=== PATIENT | female | born 1950 | race Caucasian/White ===

== ENCOUNTER 2020-07-15 18:39 | Emergency (ER) | payer MEDICARE, OTHER ==
[2020-07-15 19:00] LABS: BILIRUBIN,URINE NEGATIVE (NEGATIVE); GLUCOSE, URINE (UA) NEGATIVE (NEGATIVE); KETONES,URINE (UA) NEGATIVE (NEGATIVE); LEUKOCYTE ESTERASE, URINE NEGATIVE (NEGATIVE); NITRITE,URINE POSITIVE (NEGATIVE); OCCULT BLOOD,URINE NEGATIVE (NEGATIVE); PH,URINE 7.5 PH (5.0-7.5); PROTEIN,URINE NEGATIVE (NEGATIVE); UROBILINOGEN,URINE 0.2 (NORMAL) E.U./dL (NORMAL)
[2020-07-15 19:03] LABS: CLARITY,URINE CLEAR (CLEAR)
[2020-07-15 19:10] LABS: BACTERIA,URINE Rare /HPF (None Seen); RBC,URINE None Seen /HPF (0-5); SQUAMOUS EPITHELIAL CELL,UR FEW Squamous (<= Few)
[2020-07-15] MEDS ORDERED: CIPROFLOXACIN 250 MG TABLET PO STA (19:46)
--- NOTE | 2020-07-15 19:52 | ED Physician Documentation ---
History of Present Illness - Stated complaint Stated Complaint: FEMALE - Chief complaint Chief Complaint: UTI - History obtained from History obtained from: Patient - Additonal information Additional information: 69-year-old woman with past medical history of diabetes not on medications currently, hyperlipidemia presents with dysuria and increased frequency gradual in onset today without hematuria. She also endorses some groin discomfort. Took Azo pill with improvement in symptoms. Denies abdominal pain, back pain, fever, nausea or other symptoms. She does have a history of UTI but has not had one in 3 years. She has had cystoscopy in the past that showed urethral narrowing. Review of Systems Ten Systems: 10 systems reviewed and negative Constitutional: denies: Fever, Chills GI: denies: Abdominal Pain, Nausea : reports: Dysuria, Frequency PD PAST MEDICAL HISTORY - Past Medical History Past Medical History: Yes Cardiovascular: Hypertension Endocrine/Autoimmune: Type 2 diabetes - Past Surgical History Ortho: Knee replacement, Spine surgery, Other HEENT: Tonsil/Adenoidectomy - Present Medications Home Medications: Ambulatory Orders Medication Instructions Recorded Confirmed Ascorbic Acid [Vitamin C] 1,000 mg PO DAILY 07/15/20 07/15/20 Aspirin [Aspirin EC] 81 mg PO DAILY 07/15/20 07/15/20 Cholecalciferol [Vitamin D3] 10,000 unit PO DAILY 07/15/20 07/15/20 Ciprofloxacin [Cipro] 250 mg PO Q12H 5 Days #10 tablet 07/15/20 Multivitamin 1 tab ORAL DAILY 07/15/20 07/15/20 Pravastatin Sodium [Pravachol] 20 mg PO DAILY 07/15/20 07/15/20 Ubidecarenone [Co Q-10] 200 mg PO DAILY 07/15/20 07/15/20 - Allergies Allergies/Adverse Reactions: Allergies Allergy/AdvReac Type Severity Reaction Status Date / Time cefazolin [From Anc] Allergy Hives Verified 07/15/20 18:43 - Social History Does the pt smoke?: No Smoking Status: Never smoker Does the pt drink ETOH?: Yes Does the pt have substance abuse?: No Substance Use and Type: CBD oil / Products - Immunizations Immunizations are current?: Yes - POLST Patient has POLST: No PD ED PE NORMAL - Vitals Vital signs reviewed: Yes - General General: Alert and oriented X 3, No acute distress, Well developed/nourished - HEENT HEENT: Atraumatic, PERRL, EOMI, Moist mucous membranes - Neck Neck: Supple, no meningeal sign - Abdomen Abdomen: Non tender, Non distended - Female Female : Deferred - Rectal Rectal: Deferred - Back Back: No CVA TTP - Derm Derm: Normal color - Extremities Extremities: No deformity - Neuro Neuro: Alert and oriented X 3 - Psych Psych: Normal mood, Normal affect Results - Vitals Vitals: Vital Signs - 24 hr 07/15/20 18:43 Temperature 37.1 C Heart Rate 106 H Respiratory 18 Rate Blood Pressure 200/91 H O2 Saturation 98 Oxygen O2 Source Room air - Labs Labs: Laboratory Tests 07/15/20 18:25 Urine Color YELLOW Urine Clarity CLEAR Urine pH 7.5 Ur Specific [place] 1.010 Urine Protein NEGATIVE Urine Glucose (UA) NEGATIVE Urine Ketones NEGATIVE Urine Occult Blood NEGATIVE Urine Nitrite POSITIVE H Urine Bilirubin NEGATIVE Urine Urobilinogen 0.2 (NORMAL) Ur Leukocyte Esterase NEGATIVE Urine RBC None Seen Urine WBC 0-3 Ur Squamous Epith Cells FEW Squamous Urine Bacteria Rare Ur Microscopic Review INDICATED Urine Culture Comments INDICATED PD MEDICAL DECISION MAKING - ED course ED course: 69-year-old woman with history of diabetes not currently on medications, hyperlipidemia presents with urinary symptoms x1 day without abdominal pain, nausea, back pain or fever. She took an Azo pill prior to arrival and her urinalysis shows nitrites, possibly a contaminant secondary to Azo with few bacteria. 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 she is requesting antibiotics and states she will follow up with a primary doctor this week in regards to her elevated blood pressure. She states that she is anxious and thinks that this is the cause. Strict return precautions given. Departure - Departure Disposition: Home, Self Care Clinical Impression: UTI (urinary tract infection) Condition: Good Instructions: Urinary Tract Infecs Women Follow-Up: aJsmyn Perdue MD [Physician No Access] - Tess Ball DO [Provider Admit Priv/Credential] - Prescriptions: Ciprofloxacin [Cipro] 250 mg PO Q12H 5 Days #10 tablet Comments: You were seen in the emergency department for UTI. Return to the emergency department if you have fevers, back pain abdominal pain or worsening of symptoms. Follow-up this week to arrange an appointment with your primary doctor and exam have your blood pressure retaken. Take antibiotics as prescribed and take a probiotic daily.
[2020-07-15 19:59] VITALS: BP 149/88
== END 2020-07-15 20:05 | disposition home or self-care (01) ==
LOC: ED 18:39
DX: N39.0 Urinary tract infection, site not specified (principal); I10 Essential (primary) hypertension; E11.9 Type 2 diabetes mellitus without complications; E78.5 Hyperlipidemia, unspecified; Z79.82 Long term (current) use of aspirin
CPT/HCPCS: 81001; 87086; 99283; 99284; A9270; 81003

== ENCOUNTER 2020-10-15 10:43 | Outpatient (CLI) | payer MEDICARE, OTHER ==
--- NOTE | 2020-10-16 13:16 | Mammography Report ---
BILATERAL DIGITAL SCREENING MAMMOGRAM 3D/2D: 10/15/2020 CLINICAL: Routine screening. Comparison is made to exams dated: 07/06/2019 mammogram, 06/04/2018 mammogram, 06/04/2018 mammogram, 06/02/2017 mammogram, 05/02/2016 mammogram, and 07/04/2014 mammogram - [facility]. The tissue of both breasts is predominantly fatty. No significant masses, calcifications, or other findings are seen in either breast. There has been no significant interval change. IMPRESSION: NEGATIVE There is no mammographic evidence of malignancy. A 1 year screening mammogram is recommended. This exam was interpreted at Station ID: [id number]. NOTE: For mammograms, a report in lay terms will be sent to the patient. Approximately 15% of breast malignancies will not be visualized mammographically. In the management of a palpable breast mass, a negative mammogram must not discourage biopsy of a clinically suspicious lesion. Electronically Signed By: Abdoul Caballero M.D., jr/penrad:10/15/2020 12:01:14 ACR BI-RADS Category 1: Negative 3341F PARENCHYMAL PATTERN: (F) - The breast(s) demonstrate(s) diffuse fatty replacement. BI-RADS CATEGORY: (1) - 1 RECOMMENDATION: (ANNUAL) - Recommend routine annual screening mammography. [id number] 1 year screening LATERALITY: (B)
== END 2020-10-15 10:44 | disposition home or self-care (01) ==
LOC: DI.N 10:43
PROVIDERS: ATTEND Internal Medicine
DX: Z12.31 Encounter for screening mammogram for malignant neoplasm of breast (principal)

== ENCOUNTER 2020-10-18 14:36 | Outpatient (CLI) | payer MEDICARE, OTHER | END 2020-10-18 14:37 | disposition home or self-care (01) | LOC: RT 14:36 | PROVIDERS: ATTEND Internal Medicine Cardiovascular Disease | DX: I10 Essential (primary) hypertension (principal) | CPT/HCPCS: 93005 ==

== ENCOUNTER 2020-12-12 10:07 | Outpatient (CLI) | payer MEDICARE, OTHER | END 2020-12-12 10:08 | disposition home or self-care (01) | LOC: DI 10:07 | PROVIDERS: ATTEND Internal Medicine Cardiovascular Disease | DX: R01.1 Cardiac murmur, unspecified (principal); I07.1 Rheumatic tricuspid insufficiency | CPT/HCPCS: 93306 ==

== ENCOUNTER 2021-01-28 12:55 | Outpatient (CLI) | payer MEDICARE, OTHER ==
--- NOTE | 2021-01-28 16:38 | XRAY Report ---
PROCEDURE: SI Joints INDICATIONS: SI JOINT PAIN TECHNIQUE: 3 views of the sacroiliac joints were acquired. COMPARISON: None FINDINGS: Bones: No bony erosions or ankylosis. No suspicious bony lesions. No fractures. Mild bilateral sac roiliac joint osteoarthritis. Lumbosacral spine fixation hardware is partially visualized. The visual ized orthopedic hardware is intact. Soft tissues: Overlying bowel gas pattern is normal. No suspicious soft tissue densities. IMPRESSION: Mild bilateral sacroiliac joint osteoarthritis. No osseous erosive changes or ankylosis. Reviewed by: Nataliia Reagan MD, PhD on 01/28/2021 4:37 PM PDT Approved by: Nataliia Reagan MD, PhD on 01/28/2021 4:37 PM PDT Station ID: [id number]
--- NOTE | 2021-01-29 08:21 | XRAY Report ---
PROCEDURE: Lumbar Spine 2 View INDICATIONS: BACK PAIN TECHNIQUE: 2 views of the lumbar spine were acquired. COMPARISON: None FINDINGS: Bones: 5 [id number] vertebrae are present. There is normal bony alignment. Moderate T12 compre ssion fractures present which is not well visualized. No suspicious bony lesions. Posterior/interbo dy fusion from the L1 through the S1 level. Surgical hardware appears intact and in expected position s. Grade 1 spinal listhesis L4-L5. Multilevel disc degeneration. Bones are osteopenic. Soft tissues: Overlying bowel gas pattern is normal. No suspicious soft tissue calcifications. Vas cular calcifications indicating atherosclerosis. IMPRESSION: 1. Moderate T12 compression of indeterminate age 2. Multilevel posterior/interbody fusion from the L1 through the S1 level with hardware in expected p osition. 3. Multilevel spondylosis. 4. Diffuse osteopenia. Reviewed by: BLAIR Moralez on 01/29/2021 8:19 AM PDT Approved by: Nicolás Cameron MD on 01/29/2021 8:19 AM PDT Station ID: [id number]
--- NOTE | 2021-01-29 08:21 | XRAY Report ---
PROCEDURE: Thoracic Spine 2 View INDICATIONS: BACK PAIN TECHNIQUE: 3 views of the thoracic spine were acquired. COMPARISON: Prior lumbar spine series dated 01/28/2021.. FINDINGS: Bones: Mild compression fracture at the T12 level of indeterminate acuity. Surgical hardware again se en within the upper lumbar spine incompletely visualized. Moderate multilevel disc degeneration.. No suspicious bony lesions. 12 pairs of ribs are noted, and appear intact where visualized. Soft tissues: No paravertebral stripe thickening. IMPRESSION: Mild T12 compression fracture of indeterminate age. If indicated, MRI could be performed for further characterization. Multilevel spondylosis throughout the thoracic spine. Reviewed by: BLAIR Moralez on 01/29/2021 8:20 AM PDT Approved by: Nicoáls Cameron MD on 01/29/2021 8:20 AM PDT Station ID: [id number]
--- NOTE | 2021-01-29 08:21 | XRAY Report ---
PROCEDURE: Hip w/Pelvis 2-3V RT INDICATIONS: BACK PAIN TECHNIQUE: AP pelvis with lateral view(s) of the right hip(s). COMPARISON: None FINDINGS: Bones: No fractures or dislocations. Pelvic ring appears intact. No suspicious bony lesions. Mode rate to severe asymmetric right hip joint narrowing with articular osteophyte formation. Lower lumbar spine fixation hardware incompletely visualized. Soft tissues: The visualized bowel gas pattern is normal. No suspicious soft tissue calcifications. 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 Reviewed by: BLAIR Moralez on 01/29/2021 8:19 AM PDT Approved by: Nicolás Cameron MD on 01/29/2021 8:19 AM PDT Station ID: [id number]
== END 2021-01-28 12:56 | disposition home or self-care (01) ==
LOC: DI 12:55
PROVIDERS: ATTEND Internal Medicine
DX: M46.1 Sacroiliitis, not elsewhere classified (principal); M48.54XA Collapsed vertebra, not elsewhere classified, thoracic region, initial encounter for fracture; Z98.1 Arthrodesis status; M47.816 Spondylosis without myelopathy or radiculopathy, lumbar region; M85.88 Other specified disorders of bone density and structure, other site; M16.11 Unilateral primary osteoarthritis, right hip; M47.814 Spondylosis without myelopathy or radiculopathy, thoracic region

== ENCOUNTER 2021-09-03 09:12 | Outpatient (CLI) | payer MEDICARE, OTHER | END 2021-09-03 09:13 | disposition short-term general hospital (02) | LOC: EMS 09:12 | DX: R53.1 Weakness (principal); M25.562 Pain in left knee; M25.561 Pain in right knee; R53.83 Other fatigue; W18.39XA Other fall on same level, initial encounter; Y92.003 Bedroom of unspecified non-institutional (private) residence as the place of occurrence of the external cause; Z98.1 Arthrodesis status | CPT/HCPCS: A0425; A0429 ==

== ENCOUNTER 2021-12-23 20:51 | Outpatient (CLI) | payer MEDICARE, OTHER ==
--- NOTE | 2021-12-24 09:16 | Ultrasound Report ---
PROCEDURE: Duplex Ext Veins Bilateral INDICATIONS: ROBERT VINYU TECHNIQUE: Real-time imaging, as well as color and pulse Doppler interrogation, were performed of the deep veins of both legs from the inguinal ligament to the popliteal fossa. COMPARISON: None. FINDINGS: The deep veins are normally compressible, and free of intraluminal thrombus. Color and pu lse Doppler demonstrate normal phasic intravascular flow. There is normal augmentation response to d istal compression maneuver. Tiny residual eccentric mural thrombus in the proximal aspect of the rig ht SFV. IMPRESSION: No sonographic evidence of acute DVT. Reviewed by: Abdoul Caballero MD on 12/24/2021 9:15 AM PDT Approved by: Abdoul Caballero MD on 12/24/2021 9:15 AM PDT Station ID: [id number]
== END 2021-12-23 20:52 | disposition home or self-care (01) ==
LOC: DI 20:51
PROVIDERS: ATTEND Internal Medicine
DX: I82.409 Acute embolism and thrombosis of unspecified deep veins of unspecified lower extremity (principal)
CPT/HCPCS: 93970

== ENCOUNTER 2022-01-14 15:11 | Outpatient (CLI) | payer MEDICARE, OTHER ==
--- NOTE | 2022-01-15 09:50 | Mammography Report ---
BILATERAL DIGITAL SCREENING MAMMOGRAM 3D/2D: 01/14/2022 CLINICAL: Routine screening. Comparison is made to exams dated: 10/15/2020 mammogram - [facility], 07/06/2019 mamm ogram, and 06/04/2018 mammogram - [facility]. The tissue of both breasts is predominantly fa tty. No significant masses, calcifications, or other findings are seen in either breast. There has been no significant interval change. IMPRESSION: NEGATIVE There is no mammographic evidence of malignancy. A 1 year screening mammogram is recommended. Based on the Tyrer Cuzick model (a risk assessment model) the patients lifetime risk is 2.5% and her 10 year risk is 2.1%. According to the ACR, ACS, and NCCN guidelines, an annual breast MRI exam rodney g with mammogram is recommended if the patients lifetime risk is 20% or greater. This exam was interpreted at Station ID: [id number]. NOTE: For mammograms, a report in lay terms will be sent to the patient. Approximately 15% of breast malignancies will not be visualized mammographically. In the management of a palpable breast mass, a negative mammogram must not discourage biopsy of a clinically suspicious lesion. Electronically Signed By: Choco guerrero/[email or web address]:01/15/2022 08:13:20 ACR BI-RADS Category 1: Negative 3341F PARENCHYMAL PATTERN: (F) - The breast(s) demonstrate(s) diffuse fatty replacement. BI-RADS CATEGORY: (1) - 1 RECOMMENDATION: (ANNUAL) - Recommend routine annual screening mammography. [id number] 1 year screening LATERALITY: (B)
== END 2022-01-14 15:12 | disposition home or self-care (01) ==
LOC: DI.N 15:11
PROVIDERS: ATTEND Internal Medicine
DX: Z12.31 Encounter for screening mammogram for malignant neoplasm of breast (principal)

== ENCOUNTER 2023-09-15 12:32 | Outpatient (CLI) | payer MEDICARE, OTHER ==
--- NOTE | 2023-09-16 10:08 | Mammography Report ---
BILATERAL DIGITAL SCREENING MAMMOGRAM 3D/2D: 09/15/2023 CLINICAL: Routine screening. Comparison is made to exams dated: 01/14/2022 mammogram, 10/15/2020 mammogram - [facility], and 07/06/2019 mammogram - [facility]. Both breasts are almost entirely fatty (category a/<25% glandular tissue). No significant masses, calcifications, or other findings are seen in either breast. There has been no significant interval change. IMPRESSION: NEGATIVE There is no mammographic evidence of malignancy. A 1 year screening mammogram is recommended. Based on the Tyrer Cuzick model (a risk assessment model) the patient's lifetime risk is 2.4% and her 10 year risk is 2.1%. According to the ACR, ACS, and NCCN guidelines, an annual breast MRI exam rodney g with mammogram is recommended if the patient's lifetime risk is 20% or greater. This exam was interpreted at Station ID: [id number]. NOTE: For mammograms, a report in lay terms will be sent to the patient. Approximately 15% of breast malignancies will not be visualized mammographically. In the management of a palpable breast mass, a negative mammogram must not discourage biopsy of a clinically suspicious lesion. Electronically Signed By: Choco guerrero/lillian:09/15/2023 14:54:11 letter sent: No_Letter ACR BI-RADS Category 1: Negative 3341F PARENCHYMAL PATTERN: (F) - The breast(s) demonstrate(s) diffuse fatty replacement. BI-RADS CATEGORY: (1) - 1 RECOMMENDATION: (ANNUAL) - Recommend routine annual screening mammography. [id number] 1 year screening LATERALITY: (B)
== END 2023-09-15 12:33 | disposition home or self-care (01) ==
LOC: DI.N 12:32
PROVIDERS: ATTEND Internal Medicine
DX: Z12.31 Encounter for screening mammogram for malignant neoplasm of breast (principal)